=== PATIENT | male | born 1985 | race Caucasian/White ===

== ENCOUNTER 2018-04-29 14:14 | Emergency (ER) | payer MEDICAID ==
[~2018-04-29] VITALS: Ht 182.9 cm; Wt 81.6 kg
[2018-04-29 14:19] VITALS: Ht 182.9 cm; Wt 81.6 kg
[2018-04-29 17:30] VITALS: BP 123/74
== END 2018-04-29 17:30 | disposition home or self-care (01) ==
LOC: ED 14:14
DX: S01.112A Laceration without foreign body of left eyelid and periocular area, initial encounter (principal); S92.251A Displaced fracture of navicular [scaphoid] of right foot, initial encounter for closed fracture; S20.211A Contusion of right front wall of thorax, initial encounter; S50.01XA Contusion of right elbow, initial encounter; Y08.89XA Assault by other specified means, initial encounter; Y93.89 Activity, other specified; Y92.89 Other specified places as the place of occurrence of the external cause; Y99.8 Other external cause status
CPT/HCPCS: 90715